=== PATIENT | female | born 1995 | race Two or more races ===

== ENCOUNTER 2019-09-06 10:53 | Emergency (ER) | payer MEDICAID ==
[~2019-09-06] VITALS: Ht 167.6 cm; Wt 50.0 kg
[2019-09-06] MEDS ORDERED: ACETAMINOPHEN 325MG TABLET PO STA (13:28)
[2019-09-06] MEDS ORDERED: ONDANSETRON 4MG ODT PO ONE (13:30)
[2019-09-06 14:08] LABS: CLARITY URINE CLEAR (CLEAR); COLOR URINE YELLOW (YELLOW); KETONES URINE 3+ (NEGATIVE); LEUKOCYTE ESTERASE URINE NEGATIVE (NEGATIVE); NITRITE URINE NEGATIVE (NEGATIVE); OCCULT BLOOD URINE NEGATIVE (NEGATIVE); PROTEIN URINE TRACE (NEGATIVE); SPECIFIC GRAVITY URINE 1.032 (1.005-1.030); UROBILINOGEN URINE 0.2 E.U./dL (0.2-1.0)
[2019-09-06 14:25] VITALS: BP 118/72
== END 2019-09-06 14:38 | disposition home or self-care (01) ==
LOC: ER 10:53
DX: K52.9 Noninfective gastroenteritis and colitis, unspecified (principal)
CPT/HCPCS: 81003; 81025; 99283; Q0162

== ENCOUNTER 2022-09-20 21:41 | Observation (INO) | payer MEDICAID, OTHER ==
[~2022-09-20] VITALS: Ht 167.6 cm; Wt 62.1 kg
[2022-09-20] MEDS ORDERED: PREN-176 PO (22:30)
[2022-09-20 22:51] LABS: CLARITY URINE TURBID (CLEAR); COLOR URINE YELLOW (YELLOW); GLUCOSE URINE NEGATIVE (NEGATIVE); KETONES URINE 2+ (NEGATIVE); LEUKOCYTE ESTERASE URINE 3+ (NEGATIVE); NITRITE URINE POSITIVE (NEGATIVE); OCCULT BLOOD URINE 1+ (NEGATIVE); PH URINE 5.5 (4.5-8.0); PROTEIN URINE 1+ (NEGATIVE); SPECIFIC GRAVITY URINE 1.013 (1.005-1.030); UROBILINOGEN URINE 0.2 E.U./dL (0.2-1.0)
[2022-09-20] MEDS: LACTATED RINGERS 1,000 ML IV SCH (22:55)
[2022-09-20 23:08] LABS: BACTERIA URINE 3+; SQUAMOUS EPITHELIAL CELL URINE 1+ /lpf (RARE/1+); WBC URINE TNTC /hpf (0-2)
[2022-09-20] MEDS ORDERED: CEFAZOLIN 2,000 MG in DEXT 5% WATER 100 ML IV NR (23:45)
[2022-09-20] MEDS ORDERED: ACETAMINOPHEN 325MG TABLET PO ONE (23:45)
[2022-09-21] MEDS ORDERED: LACTATED RINGERS 1,000 ML IV SCH (01:00)
[2022-09-21] MEDS ORDERED: ACETAMINOPHEN 325MG TABLET PO PRN (01:15)
[2022-09-21] MEDS ORDERED: AMPICILLIN 2,000 MG in SODIUM CHLORIDE 0.9% 100 ML IV SCH (06:00)
[2022-09-21] MEDS ORDERED: NITR-87 MT (07:35)
[2022-09-21] MEDS: LACTATED RINGERS 1,000 ML IV SCH (09:24)
[2022-09-21] MEDS ORDERED: AMPICILLIN 2GM in NS 100ML 100 ML IV SCH (18:00)
== END 2022-09-21 12:00 | disposition home or self-care (01) ==
LOC: 8 EST LDRP 21:41
PROVIDERS: ADMIT Obstetrics & Gynecology; ATTEND Obstetrics & Gynecology
DX: O99.891 Other specified diseases and conditions complicating pregnancy (principal); M54.9 Dorsalgia, unspecified; R10.30 Lower abdominal pain, unspecified; O23.42 Unspecified infection of urinary tract in pregnancy, second trimester; Z3A.27 27 weeks gestation of pregnancy
CPT/HCPCS: 96361 ×2; 81003; 87086; 87186; 87077; 59025; 96365; 96367; J0690; J7060; G0378 ×3; J0290; J7050; 99281